=== PATIENT | male | born 1995 | race Two or more races ===

== ENCOUNTER 2018-03-06 02:48 | Emergency (ER) | payer SELFPAY ==
[2018-03-06 02:56] VITALS: BP 134/81
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
[2018-03-06] MEDS ORDERED: CLINDAMYCIN HCL 150 MG CAPSULE PO ONE ×2 (07:21→09:01)
[2018-03-06] MEDS ORDERED: BUPIVACAINE HCL 0.5%-EPI 1:200000 INJ/PF 30 ML VIAL INJ ONE (07:22)
[2018-03-06] MEDS ORDERED: LIDOCAINE 2% INJ (20 MG/ML) 20 ML MDV INJ ONE (07:23)
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
== END 2018-03-06 09:16 | disposition home or self-care (01) ==
LOC: ER 02:48
DX: S03.2XXA Dislocation of tooth, initial encounter (principal); R51 Headache; Y04.2XXA Assault by strike against or bumped into by another person, initial encounter; Y92.59 Other trade areas as the place of occurrence of the external cause; Z77.29 Contact with and (suspected) exposure to other hazardous substances; F17.200 Nicotine dependence, unspecified, uncomplicated
CPT/HCPCS: 99283; 70450; 70486; 72125; 64400; J3490 ×2